=== PATIENT | female | born 1985 | race Caucasian/White ===

== ENCOUNTER 2016-06-20 09:30 | Outpatient (RCR) | payer OTHER ==
[~2016-06-20 09:30] MED LIST: NORCO 325 MG-51 TAB PO; NUVARING VAG RING VG; PEPCID 20MG TAB20 MG PO; PREDNISONE20 MG PO; SOLU-MEDRO1000 MG/1 IJ
== END 2016-08-01 10:35 | disposition home or self-care (01) ==
LOC: WSPT 09:30
DX: M54.89 Other dorsalgia (principal); G89.4 Chronic pain syndrome
CPT/HCPCS: G8978-GP; G8979-GP